=== PATIENT | female | born 1985 | race American Indian/Alaskan Native ===

== ENCOUNTER 2020-05-12 09:16 | Outpatient (CLI) | payer BC ==
--- NOTE | 2020-05-12 10:25 | Mammography Report ---
DIGITAL DIAGNOSTIC MAMMOGRAM WITH CAD WITH TOMOSYNTHESIS, 05/12/2020 CLINICAL INFORMATION / INDICATION: Clear left nipple discharge x1 day. TECHNIQUE: Digital left mammographic imaging was performed. This examination was interpreted with the benefit of Computer-aided Detection analysis. COMPARISON: None available. FINDINGS: Breast Density: The breast is heterogeneously dense, which may obscure small masses. No dominant mass, suspicious calcifications or architectural distortion in the left breast. IMPRESSION: No mammographic evidence of malignancy. Follow up recommendation: Routine yearly BI-RADS Category 1: Negative. A "normal" or negative report should not discourage follow up or biopsy of a clinically significant f inding. A written summary of these findings will be mailed to the patient. The patient will be entered into a mammography reporting system which will generate a reminder letter for the patient's next appointmen t at the appropriate interval. According to the [employer], yearly mammograms are recommended starting at age 40 and continuing as long as a woman is in good health. Breast MRI is recommended for women with an juan roximately 20-25% or greater lifetime risk of breast cancer, including women with a strong family his tory of breast or ovarian cancer and women who have been treated for Hodgkin's disease. Signer Name: Edgardo Powell MD Signed: 05/12/2020 10:20 AM Workstation Name: [email or web address]
--- NOTE | 2020-05-12 10:25 | Mammography Report ---
DIGITAL DIAGNOSTIC MAMMOGRAM WITH CAD WITH TOMOSYNTHESIS, 05/12/2020 CLINICAL INFORMATION / INDICATION: Clear left nipple discharge x1 day. TECHNIQUE: Digital left mammographic imaging was performed. This examination was interpreted with the benefit of Computer-aided Detection analysis. COMPARISON: None available. FINDINGS: Breast Density: The breast is heterogeneously dense, which may obscure small masses. No dominant mass, suspicious calcifications or architectural distortion in the left breast. IMPRESSION: No mammographic evidence of malignancy. Follow up recommendation: Routine yearly BI-RADS Category 1: Negative. A "normal" or negative report should not discourage follow up or biopsy of a clinically significant f inding. A written summary of these findings will be mailed to the patient. The patient will be entered into a mammography reporting system which will generate a reminder letter for the patient's next appointmen t at the appropriate interval. According to the [employer], yearly mammograms are recommended starting at age 40 and continuing as long as a woman is in good health. Breast MRI is recommended for women with an jaun roximately 20-25% or greater lifetime risk of breast cancer, including women with a strong family his tory of breast or ovarian cancer and women who have been treated for Hodgkin's disease. Signer Name: Edgardo Powell MD Signed: 05/12/2020 10:20 AM Workstation Name: [email or web address]
== END 2020-05-12 09:17 | disposition home or self-care (01) ==
LOC: SPVWC 09:16
PROVIDERS: ATTEND Surgery
DX: R92.2 Inconclusive mammogram (principal); Z85.3 Personal history of malignant neoplasm of breast
CPT/HCPCS: 77065; G0279

== ENCOUNTER 2020-05-24 11:14 | Outpatient (CLI) | payer BC ==
--- NOTE | 2020-05-24 14:29 | Ultrasound Report ---
ULTRASOUND BREAST LEFT LIMITED, 05/24/2020 CLINICAL INFORMATION / INDICATION: NIPPLE DISCHARGE. TECHNIQUE: Targeted ultrasound evaluation was performed of the area of interest. COMPARISON: Left diagnostic mammogram 05/12/2020 FINDINGS: Targeted ultrasound of the subareolar left breast reveals normal fibroglandular tissue. No suspicious cystic or solid lesion identified. IMPRESSION: 1. No sonographic abnormality to account for left nipple discharge, therefore clinical correlation is recommended. Follow up recommendation: Unless otherwise clinically indicated, recommend patient return to routine screening mammography at age 38. BI-RADS Category 1: Negative. A normal or "negative" report should not preclude biopsy or follow-up of a clinically suspicious find ing. Signer Name: Qian Melendez MD Signed: 05/24/2020 2:24 PM Workstation Name: [email or web address]
== END 2020-05-24 11:15 | disposition home or self-care (01) ==
LOC: SPVWC 11:14
PROVIDERS: ATTEND Surgery
DX: N64.52 Nipple discharge (principal); R92.8 Other abnormal and inconclusive findings on diagnostic imaging of breast

== ENCOUNTER 2020-06-22 10:54 | Outpatient (CLI) | payer BC ==
--- NOTE | 2020-06-22 15:40 | Magnetic Resonance Report ---
Bilateral breast MRI with and without contrast. History: Personal history of right breast cancer with mastectomy and reconstruction in 2013, recent history of clear left nipple discharge for one day, negative left breast ultrasound and diagnostic ma mmogram Procedure: Axial T1 and T2-weighted fat-sat images were obtained precontrast. 13 cc MultiHance was i njected intravenously and serial axial T1-weighted images with fat saturation were obtained postcontr ast. 3-D MIP projections, Kinetic analysis and subtraction imaging was utilized to evaluate. A [employer] 8 channel breast coil was utilized for image acquisition. Comparison: Left breast ultrasound 05/24/2020, left mammogram 05/12/2020 Findings: Background level of enhancement is moderate. No suspicious axillary or clavicular nodes are identified. No abnormal bone marrow signal is seen. No significant chest wall enhancement is noted. Right breast: Reconstructive changes are seen. Implant appears intact. No suspicious lesions are note d. Left breast: Moderate benign-appearing stippled and vascular enhancement is seen lowering sensitivity . Generalized nipple enhancement without washout is not within range of normal variation. No discrete significant lesions are seen. Impression: No suspicious lesions are seen BIRADS: 2: Benign Reviewed with a colleague Signer Name: Topher Espinoza MD Signed: 06/22/2020 3:35 PM Workstation Name: [id number]
== END 2020-06-22 10:55 | disposition home or self-care (01) ==
LOC: SPVIMAG 10:54
PROVIDERS: ATTEND Surgery
DX: N64.52 Nipple discharge (principal); Z85.3 Personal history of malignant neoplasm of breast
CPT/HCPCS: A9577; C8908; 77049

== ENCOUNTER 2020-08-10 10:35 | Day surgery (SDC) | payer BC ==
[2020-08-08 13:39] LABS: Hematocrit 35.9 % (30.3-42.9); Hemoglobin 11.7 gm/dl (10.1-14.3); Mean Corpuscular HGB Conc 33 % (30-34); Mean Corpuscular Volume 82 fl (79-97); Platelet Count 353 K/mm3 (140-440); Red Cell Distribution Width 14.1 % (13.2-15.2)
[~2020-08-10 10:35] MED LIST: ACETAMINOPHEN 500 MG TAB PO SCH; LACTATED RINGERS 1,000 ML IV SCH; MIDAZOLAM 2 MG/2 ML INJ IV NR; ceFAZolin/Water 2 GM/20 ML 2 GM/20 ML SYRINGE IV NR
[2020-08-10] MEDS ORDERED: HYDROmorphone 1 MG/1 ML INJ IV PRN (11:26)
[2020-08-10] MEDS ORDERED: HYDROcodone/ACETAMINOPHEN 5-325 MG TAB PO PRN (11:26)
[2020-08-10] MEDS ORDERED: ONDANSETRON 4 MG/2 ML INJ IV PRN (11:26)
--- NOTE | 2020-08-10 11:26 | Anesthesia Consultation ---
Anesthesia Consult and Med Hx Date of service: 08/10/20 - Airway Anesthetic Teeth Evaluation: Good ROM Head & Neck: Adequate Mental/Hyoid Distance: Adequate Mallampati Class: Class II Intubation Access Assessment: Probably Good - Pre-Operative Health Status ASA Pre-Surgery Classification: ASA2 Proposed Anesthetic Plan: General - Pulmonary Hx Smoking: No Hx Respiratory Symptoms: No - Cardiovascular System Hx Hypertension: No - Central Nervous System CVA: No - Endocrine Hx Renal Disease: No Hx Liver Disease: No Hx Insulin Dependent Diabetes: No Hx Non-Insulin Dependent Diabetes: No Hx Thyroid Disease: No - Other Systems Hx Cancer: Yes (hx breast ca s/p mastectomy)
--- NOTE | 2020-08-10 11:27 | Anesthesia Day of Surgery ---
Anesthesia Day of Surgery - Day of Surgery Patient Examined: Yes Patient H&P Reviewed: Yes Patient is NPO: Yes
[2020-08-10] MEDS ORDERED: HYDROmorphone 1 MG/1 ML INJ ONE (13:37)
[2020-08-10] MEDS ORDERED: LIDOCAINE (1%) 10 MG/1 ML VIAL 20 ML MDV ONE (13:37)
[2020-08-10] MEDS ORDERED: propofoL 200 MG/20 ML VIAL IV ONE (13:38)
[2020-08-10] MEDS ORDERED: BUPIVACAINE/PF (0.25%) 2.5 MG/ML 10 ML VIAL INFILTRATI ONE ×2 (13:38→14:34)
[2020-08-10] MEDS ORDERED: LIDOCAINE MPF (2%) 20 MG/1 ML VIAL 5 ML ONE (13:38)
--- NOTE | 2020-08-10 13:40 | Short Stay Summary ---
Short Stay Documentation Date of service: 08/10/20 - History H&P: obtained from office - Allergies and Medications Current Medications: Allergies bacitracin [From Neosporin ([id number])] Allergy (Verified 08/10/20 12:24) Rash neomycin [From Neosporin ([id number]-[id number])] Allergy (Verified 08/10/20 12:24) Rash polymyxin B [From Neosporin ([id number]-aew-[id number])] Allergy (Verified 08/10/20 12:24) Rash Home Medications Medication Instructions Recorded Confirmed Last Taken Type No Known Home Medications [No 08/04/20 08/10/20 Unknown History Reported Home Medications] Active Medications Acetaminophen (Acetaminophen 500 Mg Tab) 1,000 mg PO PREOP BRIGHT Stop: 08/10/20 21:00 Last Admin: 08/10/20 11:30 Dose: 1,000 mg Documented by: Hydrocodone Bitart/Acetaminophen (Hydrocodone/Acetaminophen 5-325 Mg Tab) 2 each PO ONCE PRN PRN Reason: Pain, Moderate (4-6) Stop: 08/10/20 23:00 Hydromorphone HCl (Hydromorphone 1 Mg/1 Ml Inj) 0.5 mg IV Q10MIN PRN PRN Reason: Pain , Severe (7-10) Stop: 08/10/20 23:00 Cefazolin Sodium (Ancef/Sterile Water 2 Gm/20 Ml) 2 gm in 20 mls @ 80 mls/hr IV PREOP NR; Protocol Stop: 08/10/20 23:01 Lactated Ringer's (Lactated Ringers) 1,000 mls @ 100 mls/hr IV DIRECT BRIGHT Stop: 08/10/20 23:59 Last Admin: 08/10/20 11:40 Dose: 100 mls/hr Documented by: Midazolam HCl (Midazolam 2 Mg/2 Ml Inj) 2 mg IV PREOP NR Stop: 08/10/20 21:00 Ondansetron HCl (Ondansetron 4 Mg/2 Ml Inj) 4 mg IV ONCE PRN PRN Reason: Nausea And Vomiting Stop: 08/10/20 23:00 - Brief post op/procedure progress note Date of procedure: 08/10/20 Pre-op diagnosis: Left spontaneous nipple discharge Post-op diagnosis: same Procedure: Left nipple terminal duct excisional biopsy Anesthesia: GETA Findings: Clear nipple discharge present with terminal duct excision performed Surgeon: GARRISON NAVARRETE Estimated blood loss: minimal Pathology: list (left terminal duct excisional biopsy) Specimen disposition: to lab Condition: stable - Disposition Condition at discharge: Good Disposition: DC-01 TO HOME OR SELFCARE Short Stay Discharge Plan Activity: other (no heavy lifting) Diet: regular Wound: keep clean and dry (wear breast binder; may shower in 48 hours; no baths, pools or lakes) Follow up with: GARRISON NAVARREET MD [Staff Physician] - 7 Days
--- NOTE | 2020-08-10 13:46 | Operative Report ---
Operative Report Operative Report: Operative Report: Date of procedure: August 10, 2020 Pre-operative diagnosis: Spontaneous left clear nipple discharge Post-operative diagnosis: Same Procedure name(s): Left nipple terminal duct excisional biopsy Surgeon: Camila Berry M.D. Anesthesia: Gen. Findings: Clear nipple discharge from left nipple noted around the 12 o'clock position was appropriately identified and dissected free and sent to pathology Complications: None Drains: None Estimated blood loss: Minimal Disposition: PACU in good condition Indications for operative procedure: This is a 35 year old lady with a personal history of right breast malignancy phyllodes tumor and underwent a right total mastectomy with implant present and left reduction mammoplasty. Patient withr recent spontaneous left nipple discharge. Recent diagnostic workup of mammogram, ultrasound and breast MRI with no findings to account for patient's clear spontaneous nipple discharge. Given her breast cancer history, recommendations are to proceed with a left nipple terminal duct excisional biopsy to rule out malignancy. Patient wished to proceed with the above procedure. Procedure in detail: The patient was taken to the operating room. Gen. anesthesia was administered. The left breast was prepped and draped in the normal side operative fashion. The clear discharge duct from the left nipple was identified around the 12 o'clock position. Lacrimal probe was inserted. A lateral periareolar incision was made with a 15 blade knife with dissection taken down to the subcutaneous tissues. First began with dissection of the tissues posterior to the nipple taken down posteriorly to 3 cm. The duct of concern was identified with a lacrimal probe appropriately inserted with duct appropriately dissected free. The terminal duct was appropriately marked using a 3-0 Vicryl stitch. The terminal duct with its surrounding tissues were removed with the aid of Bovie cautery and sent to pathology. Hemostasis was obtained with the aid of Bovie cautery. The breast cavity tissues were anesthetized with 1% lidocaine and quarter percent Marcaine. The subcutaneous tissues were approximated and closed using interrupted 3-0 Vicryl and skin brought together and closed using a running 4-0 Monocryl followed by skin affix. Skin injected with kenalog given prior surgical incision around nipple. Nipple with good perfusion. She tolerated surgery very well and was awakened from anesthesia without any complications and transported to PACU in good condition.
[2020-08-10] MEDS ORDERED: TRIAMCINOLONE 40 MG/1 ML INJ ONE (14:19)
[2020-08-10] MEDS ORDERED: WATER FOR IRRIG STERILE 1,500 ML BOTTLE IR ONE (14:33)
[2020-08-10] MEDS ORDERED: TRIAMCINOLONE 40 MG/1 ML INJ IM ONE (14:34)
[2020-08-10] MEDS ORDERED: LIDOCAINE (1%) 10 MG/1 ML VIAL 20 ML MDV INFILTRATI ONE ×2 (14:34)
[2020-08-10] MEDS ORDERED: PHENYLEPHRINE/NS 1,000 MCG/10 ML SYRINGE (OR USE) IV ONE (15:04)
[2020-08-10] MEDS ORDERED: ONDANSETRON 4 MG/2 ML INJ ONE (15:48)
[2020-08-10] MEDS ORDERED: LACTATED RINGERS 1,000 ML ONE (15:48)
[2020-08-10] MEDS ORDERED: KETOROLAC 30 MG/1 ML INJ ONE (15:48)
--- NOTE | 2020-08-10 16:53 | Post Anesthesia Evaluation ---
- Post Anesthesia Evaluation Patient Participated: Yes Airway Patent: Yes Stable Respiratory Function: Yes Nausea/Vomiting: No Temp > 96.8F: Yes Pain Manageable: Yes Adequeate Hydration: Yes Anesthesia Complications: No
[2020-08-10 17:30] VITALS: BP 133/84
== END 2020-08-10 10:36 | disposition home or self-care (01) ==
LOC: OR 10:35
PROVIDERS: ATTEND Surgery
DX: N64.52 Nipple discharge (principal); Z20.822 Contact with and (suspected) exposure to COVID-19; G43.909 Migraine, unspecified, not intractable, without status migrainosus; Z90.11 Acquired absence of right breast and nipple; Z98.891 History of uterine scar from previous surgery; Z88.8 Allergy status to other drugs, medicaments and biological substances; Z79.899 Other long term (current) drug therapy; Z72.89 Other problems related to lifestyle; Z98.890 Other specified postprocedural states
CPT/HCPCS: 19120; 36415; 84703; 85027; 88307; J0690; J1170; J1885; J2250; J2370; J2405; J2704; J3301; J7120; U0003

== ENCOUNTER 2020-12-22 10:30 | Outpatient (CLI) | payer BC ==
--- NOTE | 2020-12-22 13:18 | Mammography Report ---
LEFT DIGITAL DIAGNOSTIC MAMMOGRAM WITH CAD WITH TOMOSYNTHESIS, 12/22/2020 LEFT COMPLETE BREAST ULTRASOUND CLINICAL INFORMATION / INDICATION: Patient has a history of right breast cancer status post right mas tectomy in 2011. Patient has had left breast surgery in 2020. Patient presents for evaluation of left white nipple discharge. N64.52 NIPPLE DISCHARGE TECHNIQUE: Digital left mammographic imaging was performed. Complete ultrasound of all four (4) quadr ants was performed. This examination was interpreted with the benefit of Computer-Aided Detection (CA D) analysis. COMPARISON: Prior mammogram 05/12/2020 and breast MRI 06/22/2020 FINDINGS: Breast Density: The breasts are heterogeneously dense, which may obscure small masses. MAMMOGRAPHIC FINDINGS: No dominant mass or suspicious calcifications in the left breast. There is new benign postsurgical change seen in the central left breast. There is no mammographic abnormality to account for left nipple discharge, therefore left breast ultrasound was subsequently performed. ULTRASOUND FINDINGS: Complete sonographic evaluation of all 4 quadrants and retroareolar region was p erformed. Complete ultrasound of the left breast reveals normal fibroglandular tissue. No suspiciou s cystic or solid lesion identified. There is benign duct ectasia seen in the subareolar left breast, with no evidence of intraductal mass. There is a mildly enlarged left axillary lymph node with corti ashtyn thickness measuring up to 5 mm. IMPRESSION: 1. New benign postsurgical change is seen in the left breast. There is mild benign duct ectasia in th e subareolar left breast, but no suspicious abnormality to account for nipple discharge, therefore cl inical correlation is recommended. 2. There is a mildly enlarged left axillary lymph node. This is nonspecific and may be reactive to re cent left breast surgery or potentially the Covid vaccination (per the history sheet, patient receive d second dose in September 2020), recommend correlation with side of administration of the vaccine. A short interval follow-up left axillary ultrasound in 3 months is recommended to ensure stability or resolu tion. Follow up recommendation: Short term follow up in 3 months. BI-RADS Category 3: Probably Benign. Followup in 3 months. A "normal" or negative report should not discourage follow up or biopsy of a clinically significant f inding. A written summary of these findings will be mailed to the patient. The patient will be entered into a mammography reporting system which will generate a reminder letter for the patient's next appointmen t at the appropriate interval. According to the [employer], yearly mammograms are recommended starting at age 40 and continuing as long as a woman is in good health. Breast MRI is recommended for women with an juan roximately 20-25% or greater lifetime risk of breast cancer, including women with a strong family his tory of breast or ovarian cancer and women who have been treated for Hodgkin's disease. Signer Name: Qian Melendez MD Signed: 12/22/2020 1:13 PM Workstation Name: [id number]
== END 2020-12-22 10:31 | disposition home or self-care (01) ==
LOC: SPVWC 10:30
PROVIDERS: ATTEND Surgery
DX: N60.42 Mammary duct ectasia of left breast (principal); N64.52 Nipple discharge
CPT/HCPCS: 76641; 77065; G0279